=== PATIENT | female | born 1945 | race Caucasian/White ===

== ENCOUNTER 2020-10-29 17:25 | Inpatient (IN) | payer MEDICARE ==
[~2020-10-29] VITALS: Ht 167.6 cm; Wt 90.6 kg
[~2020-10-29 17:25] MED LIST: AMIT75TA PO; AMLO-150 PO; ATEN100T PO; BACL-19 PO; DULO30CA2 PO; ESOM40CA PO; FURO-93 PO; GABA400C PO; LISI-170 PO; OXYC-293 PO; POTA10TA PO; PRAV80TA2 PO
--- NOTE | 2020-10-29 17:41 | NUR ---
PT BIB CARE FLIGHT FROM [facility] FOR WEAKNESS/D/HYPOTENSION. PT STARTED FEELING WEAK THIS MORNING. 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 PT SAW AT [facility] ON 10/25 FOR HTN/DIZZINESS/DEHYDRATION. PT CHANGED INTO GOWN, MONITORS IN PLACE. PT PLACED ON 3L NC. CALL LIGHT WITHIN REACH. Addendum: 10/29/20 at 1854 by [email or web address] PT BIB CARE FLIGHT FROM [facility] FOR WEAKNESS/D/HYPOTENSION. PT STARTED FEELING WEAK THIS MORNING. 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 PT SEEN AT [facility] ON 10/25 FOR HTN/DIZZINESS/DEHYDRATION. PT CHANGED INTO GOWN, MONITORS IN PLACE. PT PLACED ON 3L NC. CALL LIGHT WITHIN REACH. PT RESPONDS APPROPRIATELY TO STAFF, COOPERATIVE AND FOLLOWS COMMANDS
--- NOTE | 2020-10-29 18:38 | NUR ---
PT RESTING CALMLY ON GURNEY, NADN/VSS. CALL LIGHT WITHIN REACH. NO NEEDS AT THIS TIME
--- NOTE | 2020-10-29 18:48 | NUR ---
report to CLAUDETTE Hood
--- NOTE | 2020-10-29 18:50 | NUR ---
REPORT FROM [facility] TRANSFER OF Care
[2020-10-29] MEDS ORDERED: SODIUM CHLORIDE FLUSH 10ML SYR IVF PRN (19:00)
--- NOTE | 2020-10-29 19:44 | NUR ---
PT RESTING ON [facility] NADN, EYES CLOSED, VSS
--- NOTE | 2020-10-29 20:26 | NUR ---
PT FAMILY UPDATED OK PER PT AT THIS TIME
--- NOTE | 2020-10-29 20:36 | NUR ---
REPORT TO RIMMA TORRES READY FOR TRANSFER TO ROOM [id number]
[2020-10-29 21:11] VITALS: BP 128/80
[2020-10-29] MEDS ORDERED: MELATONIN 5 MG TABLET PO PRN (22:30)
[2020-10-29] MEDS ORDERED: LIDODERM 5% PATCH TD PRN (22:30)
[2020-10-29] MEDS ORDERED: DOCUSATE 100 MG CAPSULE PO PRN (22:30)
[2020-10-29] MEDS: SODIUM CHLORIDE 0.9% 1,000 ML IV SCH (23:20)
[2020-10-30 00:59] VITALS: BP 118/78
[2020-10-30] MEDS ORDERED: HEPARIN 5,000 UNITS/ML, 1ML IV ONE (02:00)
[2020-10-30] MEDS ORDERED: HEPARIN 5,000 UNITS/ML, 1ML IV PRN (02:00)
[2020-10-30] MEDS: HEPARIN 25,000 UNITS/250ML PMX 250 ML IV PRN (03:47)
[2020-10-30 06:11] LABS: BASOPHILS % (AUTO) 1 % (0-1); EOSINOPHILS % (AUTO) 0 % (1-7); LYMPHOCYTES % (AUTO) 12 % (22-44); MEAN CORPUSCULAR HEMOGLOBIN 32.1 pg (27.0-34.8); MEAN CORPUSCULAR HGB CONC 32.1 g/dL (32.4-35.8); MEAN PLATELET VOLUME 7.6 fL (7.4-10.4); MONOCYTES % (AUTO) 9 % (2-9); NEUTROPHILS % (AUTO) 78 % (42-75); PLATELET COUNT 262 x10^3/uL (130-400); RED BLOOD COUNT 3.55 x10^6/uL (3.82-5.3)
[2020-10-30 06:14] LABS: MD NO
[2020-10-30 06:21] LABS: ANION GAP 5 mmol/L (5-15); CALCIUM 7.9 mg/dL (8.5-10.1); CHLORIDE 111 mmol/L (98-107)
[2020-10-30 06:26] LABS: CREATININE 0.73 mg/dL (0.55-1.02); TROPONIN I 0.908 ng/mL (0.000-0.045)
[2020-10-30 06:55] VITALS: BP 128/79
[2020-10-30] MEDS: SODIUM CHLORIDE 0.9% 1,000 ML IV SCH (13:00)
[2020-10-30 14:54] VITALS: BP 111/68
[2020-10-30] MEDS: POTASSIUM CHLORIDE 20 MEQ PACKET PO SCH (17:35)
[2020-10-30 18:54] VITALS: BP 135/74
[2020-10-30] MEDS: DULOXETINE 30 MG CAPSULE.DR PO SCH (20:35)
[2020-10-30] MEDS: AMITRIPTYLINE 75 MG TABLET PO SCH (20:35)
[2020-10-31 00:38] VITALS: BP 139/84
[2020-10-31] MEDS: HEPARIN 25,000 UNITS/250ML PMX 250 ML IV PRN (03:25)
[2020-10-31] MEDS: SODIUM CHLORIDE 0.9% 1,000 ML IV SCH (04:18)
[2020-10-31 05:43] LABS: BASOPHILS % (AUTO) 1 % (0-1); EOSINOPHILS % (AUTO) 1 % (1-7); LYMPHOCYTES % (AUTO) 12 % (22-44); MEAN CORPUSCULAR HEMOGLOBIN 32.7 pg (27.0-34.8); MEAN CORPUSCULAR HGB CONC 32.7 g/dL (32.4-35.8); MEAN PLATELET VOLUME 8.2 fL (7.4-10.4); MONOCYTES % (AUTO) 7 % (2-9); NEUTROPHILS % (AUTO) 80 % (42-75); PLATELET COUNT 244 x10^3/uL (130-400); RED BLOOD COUNT 3.54 x10^6/uL (3.82-5.3); RED CELL DISTRIBUTION WIDTH 16.2 % (9.6-15.2)
[2020-10-31 05:44] LABS: MD NO
[2020-10-31 05:54] LABS: CHLORIDE 111 mmol/L (98-107)
[2020-10-31 06:05] LABS: ALANINE AMINOTRANSFERASE 49 U/L (12-78); ALBUMIN 2.7 g/dL (3.4-5.0); ALKALINE PHOSPHATASE 74 U/L (45-117); ANION GAP 6 mmol/L (5-15); BILIRUBIN,TOTAL 0.3 mg/dL (0.2-1.0); CALCIUM 8.1 mg/dL (8.5-10.1); CREATININE 0.54 mg/dL (0.55-1.02); TOTAL PROTEIN 6.1 g/dL (6.4-8.2)
[2020-10-31 07:37] VITALS: BP 143/77
[2020-10-31] MEDS ORDERED: FUROSEMIDE 20 MG TABLET PO SCH (09:00)
[2020-10-31] MEDS: LACTOBACILLUS CHEW TABLET PO SCH ×3 (09:00→20:08)
[2020-10-31] MEDS: LISINOPRIL 20 MG TABLET PO SCH (09:00)
[2020-10-31] MEDS: POTASSIUM CHLORIDE 20 MEQ PACKET PO SCH ×2 (09:01→17:24)
[2020-10-31] MEDS: DULOXETINE 30 MG CAPSULE.DR PO SCH ×2 (09:01→20:08)
[2020-10-31] MEDS: ATENOLOL 50 MG TABLET PO SCH (09:02)
[2020-10-31 11:55] LABS: MICROSCOPIC INDICATED
[2020-10-31 12:16] LABS: CLOSTRIDIUM DIFFICILE TOXIN NEGATIVE (Negative)
[2020-10-31 12:18] LABS: CLOSTRIDIUM DIFFICILE ANTIGEN POSITIVE
[2020-10-31 12:32] VITALS: BP 154/69
[2020-10-31 19:00] VITALS: BP 138/71
[2020-10-31] MEDS: AMITRIPTYLINE 75 MG TABLET PO SCH (20:08)
[2020-10-31] MEDS: GABAPENTIN 400 MG CAPSULE PO SCH (20:08)
[2020-10-31] MEDS: PRAVASTATIN 40 MG TABLET PO SCH (20:08)
[2020-10-31] MEDS: APIXABAN 5 MG TABLET PO SCH (20:09)
[2020-11-01 00:10] VITALS: BP 134/65
[2020-11-01 06:33] VITALS: BP 149/77
[2020-11-01] MEDS: ATENOLOL 50 MG TABLET PO SCH (06:33)
[2020-11-01 06:44] VITALS: BP 145/77
[2020-11-01 06:48] LABS: BASOPHILS % (AUTO) 1 % (0-1); EOSINOPHILS % (AUTO) 0 % (1-7); LYMPHOCYTES % (AUTO) 12 % (22-44); MEAN CORPUSCULAR HEMOGLOBIN 32.3 pg (27.0-34.8); MEAN CORPUSCULAR HGB CONC 32.7 g/dL (32.4-35.8); MEAN PLATELET VOLUME 8.3 fL (7.4-10.4); MONOCYTES % (AUTO) 7 % (2-9); NEUTROPHILS % (AUTO) 80 % (42-75); PLATELET COUNT 244 x10^3/uL (130-400); RED BLOOD COUNT 3.63 x10^6/uL (3.82-5.3); RED CELL DISTRIBUTION WIDTH 16.3 % (9.6-15.2)
[2020-11-01 06:51] LABS: MD NO
[2020-11-01 06:54] LABS: ALANINE AMINOTRANSFERASE 41 U/L (12-78); ALBUMIN 2.9 g/dL (3.4-5.0); ANION GAP 4 mmol/L (5-15); CALCIUM 8.5 mg/dL (8.5-10.1); CHLORIDE 107 mmol/L (98-107); CREATININE 0.55 mg/dL (0.55-1.02)
[2020-11-01 06:59] LABS: ALKALINE PHOSPHATASE 80 U/L (45-117); BILIRUBIN,TOTAL 0.4 mg/dL (0.2-1.0); TOTAL PROTEIN 6.5 g/dL (6.4-8.2)
[2020-11-01] MEDS ORDERED: ATENOLOL 50 MG TABLET PO ONE (08:30)
[2020-11-01] MEDS: POTASSIUM CHLORIDE 20 MEQ PACKET PO SCH ×2 (08:42→16:51)
[2020-11-01] MEDS: AMLODIPINE 10 MG TAB PO SCH (08:43)
[2020-11-01] MEDS: APIXABAN 5 MG TABLET PO SCH ×2 (08:43→20:02)
[2020-11-01] MEDS: DULOXETINE 30 MG CAPSULE.DR PO SCH ×3 (08:43→20:02)
[2020-11-01] MEDS: PANTOPRAZOLE 40MG TABLET PO SCH (08:43)
[2020-11-01] MEDS: GABAPENTIN 400 MG CAPSULE PO SCH ×2 (08:43→20:02)
[2020-11-01] MEDS: LACTOBACILLUS CHEW TABLET PO SCH ×3 (08:44→20:02)
[2020-11-01 13:44] VITALS: BP 127/55
[2020-11-01 19:06] VITALS: BP 124/78
[2020-11-01 19:59] VITALS: BP 133/68
[2020-11-01] MEDS: AMITRIPTYLINE 75 MG TABLET PO SCH (20:01)
[2020-11-01] MEDS: PRAVASTATIN 40 MG TABLET PO SCH (20:02)
[2020-11-01] MEDS: LISINOPRIL 20 MG TABLET PO SCH (20:03)
[2020-11-02 01:45] VITALS: BP 128/75
[2020-11-02 05:52] VITALS: BP 133/77
[2020-11-02] MEDS: ATENOLOL 100 MG TABLET PO SCH (05:54)
[2020-11-02 06:30] VITALS: BP 125/81
[2020-11-02] MEDS ORDERED: REGADENOSON 0.4 MG/5 ML SYRINGE ONE (08:00)
[2020-11-02] MEDS: LACTOBACILLUS CHEW TABLET PO SCH ×3 (10:55→21:31)
[2020-11-02] MEDS: POTASSIUM CHLORIDE 20 MEQ PACKET PO SCH ×2 (10:55→16:44)
[2020-11-02] MEDS: DULOXETINE 30 MG CAPSULE.DR PO SCH ×3 (10:56→21:00)
[2020-11-02] MEDS: APIXABAN 5 MG TABLET PO SCH ×2 (10:56→21:30)
[2020-11-02] MEDS: AMLODIPINE 10 MG TAB PO SCH (10:56)
[2020-11-02] MEDS: GABAPENTIN 400 MG CAPSULE PO SCH ×2 (10:56→21:31)
[2020-11-02] MEDS: PANTOPRAZOLE 40MG TABLET PO SCH (10:59)
[2020-11-02 12:22] VITALS: BP 122/60
[2020-11-02] MEDS ORDERED: APIX5TAB PO (15:58)
[2020-11-02] MEDS ORDERED: VANC1VIA36 PO (15:58)
[2020-11-02] MEDS: VANCOMYCIN 50 MG/ML ORAL SUSP PO SCH ×2 (18:08→21:31)
[2020-11-02 19:34] VITALS: BP 142/93
[2020-11-02] MEDS: LISINOPRIL 20 MG TABLET PO SCH (21:31)
[2020-11-02] MEDS: PRAVASTATIN 40 MG TABLET PO SCH (21:31)
[2020-11-02] MEDS: AMITRIPTYLINE 75 MG TABLET PO SCH (21:31)
[2020-11-03 00:39] VITALS: BP 126/74
[2020-11-03] MEDS: VANCOMYCIN 50 MG/ML ORAL SUSP PO SCH ×2 (03:52→09:49)
[2020-11-03 05:53] VITALS: BP 147/84
[2020-11-03] MEDS: ATENOLOL 100 MG TABLET PO SCH (05:54)
[2020-11-03 09:40] VITALS: BP 133/79
[2020-11-03] MEDS: LISINOPRIL 20 MG TABLET PO SCH (09:49)
[2020-11-03] MEDS: POTASSIUM CHLORIDE 20 MEQ PACKET PO SCH (09:49)
[2020-11-03] MEDS: APIXABAN 5 MG TABLET PO SCH (09:49)
[2020-11-03] MEDS: GABAPENTIN 400 MG CAPSULE PO SCH (09:49)
[2020-11-03] MEDS: AMLODIPINE 10 MG TAB PO SCH (09:49)
[2020-11-03] MEDS: DULOXETINE 30 MG CAPSULE.DR PO SCH (09:49)
[2020-11-03] MEDS: LACTOBACILLUS CHEW TABLET PO SCH (09:49)
[2020-11-03] MEDS: PANTOPRAZOLE 40MG TABLET PO SCH (09:49)
== END 2020-11-03 11:39 | disposition home health service (06) | DRG 371 ==
LOC: ED 18:45 → EDIP 19:17 → 5SO 20:45
PROVIDERS: ADMIT Family Medicine; ATTEND Family Medicine
DX: A04.72 Enterocolitis due to Clostridium difficile, not specified as recurrent (principal); I21.A1 Myocardial infarction type 2; D68.69 Other thrombophilia; J96.11 Chronic respiratory failure with hypoxia; I48.91 Unspecified atrial fibrillation; E86.1 Hypovolemia; Z66 Do not resuscitate; J44.9 Chronic obstructive pulmonary disease, unspecified; E86.0 Dehydration; E66.01 Morbid (severe) obesity due to excess calories; E11.42 Type 2 diabetes mellitus with diabetic polyneuropathy; E78.5 Hyperlipidemia, unspecified; F17.200 Nicotine dependence, unspecified, uncomplicated; F32.9 Major depressive disorder, single episode, unspecified; G89.29 Other chronic pain; I10 Essential (primary) hypertension; I25.10 Atherosclerotic heart disease of native coronary artery without angina pectoris; K21.9 Gastro-esophageal reflux disease without esophagitis; Z88.2 Allergy status to sulfonamides; Z99.81 Dependence on supplemental oxygen; Z88.8 Allergy status to other drugs, medicaments and biological substances; Z80.8 Family history of malignant neoplasm of other organs or systems; Z82.49 Family history of ischemic heart disease and other diseases of the circulatory system; I95.9 Hypotension, unspecified; Z68.32 Body mass index [BMI] 32.0-32.9, adult
CPT/HCPCS: 36415; 78452; 80048; 80053; 81001; 83036; 84484; 85025; 85520; 87046; 87086; 87324; 87427; 87493; 89055; 93005; 93017; 99285; C8929; G0378; J1644; J2785; J3370; Q9957; A9502; J7030